=== PATIENT | female | born 1955 | race Caucasian/White ===

== ENCOUNTER → 2022-12-06 | Outpatient (CLI) | payer MEDICARE ==
--- NOTE | 2022-12-06 11:54 | US ---
EXAMINATION TYPE: US abdomen limited DATE OF EXAM: 12/06/2022 COMPARISON: NONE CLINICAL HISTORY: B15.9 HEP A R94.5 ABNORMAL LABS. Hep A limited due to body habitus and bowel gas. TECHNIQUE: Multiple sonographic images of the right upper quadrant are obtained. FINDINGS: EXAM MEASUREMENTS: Liver Length: 15.1 cm Gallbladder Wall: .3 cm CBD: 0.6 cm Right Kidney: 9.2 x 3.3 x 3.5 cm SEAT BUILDER NOTES: Pancreas: Obscured by bowel gas Liver: Increased attenuation which is slightly heterogenous. No suspicious masses. Gallbladder: No stones seen, increased density layering in the gallbladder lumen. Evidence for sonographic Virgen's sign: No CBD: wnl Right Kidney: No hydronephrosis or masses seen IMPRESSION: 1. No evidence for acute process. 2. Biliary sludge 3. Heterogenous liver likely secondary to hepatocellular disease.
== END | disposition home or self-care (01) ==
LOC: RADUSWWP 07:46
PROVIDERS: ATTEND Family Medicine
DX: K83.8 Other specified diseases of biliary tract (principal); B15.9 Hepatitis A without hepatic coma; R94.5 Abnormal results of liver function studies
CPT/HCPCS: 76705

== ENCOUNTER → 2023-06-15 | Outpatient (CLI) | payer MEDICARE ==
--- NOTE | 2023-06-15 13:25 | US ---
EXAMINATION TYPE: US venous doppler duplex LE DATE OF EXAM: 06/15/2023 1:13 PM COMPARISON: NONE CLINICAL INDICATION: Female, 67 years old with history of M79.661, M79.662; Edema SIDE PERFORMED: Bilateral TECHNIQUE: The lower extremity deep venous system is examined utilizing real time linear array sonog carlie with graded compression, doppler sonography and color-flow sonography. VESSELS IMAGED: Common Femoral Vein Deep Femoral Vein Greater Saphenous Vein * Femoral Vein Popliteal Vein Small Saphenous Vein * Proximal Calf Veins (* superficial vessels) Right Leg: Negative for DVT Left Leg: Negative for DVT IMPRESSION: Grayscale, color doppler, spectral doppler imaging performed of the deep veins of the lo wer extremities. There is normal flow, compressibility, vascular waveforms.
== END | disposition home or self-care (01) ==
LOC: RADUSWWP 12:55
PROVIDERS: ATTEND Family Medicine
DX: M79.661 Pain in right lower leg (principal); M79.662 Pain in left lower leg; M79.671 Pain in right foot; R60.0 Localized edema
CPT/HCPCS: 93970

== ENCOUNTER → 2025-01-23 | Outpatient (CLI) | payer MEDICARE ==
--- NOTE | 2025-01-23 16:12 | MM ---
Reason for Exam: Screening (asymptomatic). Last mammogram was performed 2 year(s) and 1 month(s) ago. Patient History: Menarche at age 12. First Full-Term at age 20. Postmenopausal. Risk Values: Lacey 5 year model risk: 1.4%. NCI Lifetime model risk: 4.4%. Prior Study Comparison: 11/03/2019 Bilateral MG screening mammo w CAD - 2, [facility] 02/17/2021 Bilateral MG screening mammo w CAD - 2, [facility] 01/04/2023 Bilateral MG 3D screening mammo w/cad, [facility]. Tissue Density: The breasts are heterogeneously dense, which may obscure small masses. Findings: Analyzed By CAD. Low axillary tail lymph nodes are unchanged. A couple of benign gliosis calcifications on either side are also unchanged. There is no suspicious group of microcalcifications or new suspicious mass in either breast. Overall Assessment: Benign, BI-RAD 2 Management: Screening Mammogram of both breasts in 1 year. Patient should continue monthly self-breast exams. A clinical breast exam by your physician is recommended on an annual basis. This exam should not preclude additional follow-up of suspicious palpable abnormalities. Note on Lacey scores and lifetime risk: 1. A Lacey score greater than 3% is considered moderate risk. If this is the case, consider specialist referral to assess eligibility for a risk reducing agent. 2. If overall lifetime risk for the development of breast cancer is 20% or higher, the patient may qualify for future screening with alternating mammogram and breast MRI. [facility], , 01/23/2025 4:09 PM. Electronically signed and approved by: Armin Bynum M.D. Radiologist
== END | disposition home or self-care (01) ==
LOC: RADMAMWWP 13:40
PROVIDERS: ATTEND Family Medicine
DX: Z12.31 Encounter for screening mammogram for malignant neoplasm of breast (principal); R92.333 Mammographic heterogeneous density, bilateral breasts; Z78.0 Asymptomatic menopausal state
CPT/HCPCS: 77063; 77067

== ENCOUNTER 2025-03-17 10:33 | Day surgery (SDC) | payer MEDICARE ==
[2025-03-13 10:06] VITALS: BMI 32.8
[2025-03-17] MEDS: IV FLUID CONTINUATION 1,000 ML IV ONE (10:59)
[2025-03-17] MEDS ORDERED: LIDOCAINE 1% (10MG/ML) FOR IV START INTRADERMA PRN (11:02)
[2025-03-17 11:04] VITALS: RESP 16; TEMP 97.8
[2025-03-17] MEDS: LACTATED RINGERS 1,000 ML IV SCH (11:12)
[2025-03-17 11:16] LABS: Glucose,Whole Blood 94 mg/dL (70-110)
[2025-03-17] MEDS ORDERED: PROPOFOL 10 MG/ML 20 ML VIAL IV ONE (12:04)
--- NOTE | 2025-03-17 12:19 | P.PCN ---
Date of Procedure: 03/17/25 Procedure(s) Performed: BRIEF HISTORY: Patient is a 69-year-old pleasant white female scheduled for an elective colonoscopy as a part of screening for history of colon polyps. Her last colonoscopy was in 5 years ago in [place]. PROCEDURE PERFORMED: Colonoscopy with biopsy. PREOPERATIVE DIAGNOSIS: Screening for history of colon polyps. IV sedation per Anesthesia. PROCEDURE: After informed consent was obtained, the patient, was brought into the endoscopy unit. IV sedation was administered by Anesthesia under continuous monitoring. Digital rectal examination was normal. Initially the Olympus CF-160 flexible video colonoscope was then inserted in the rectum, gradually advanced into the cecum without any difficulty. Careful examination was performed as the scope was gradually being withdrawn. Ileocecal valve and the appendiceal orifice were visualized and appeared normal. Prep was excellent. Mucosa of the cecum, ascending colon, transverse colon, descending colon, sigmoid colon, appeared normal. In the mid rectum extending from 5 to 10 cm from the anal verge there was mucus erythema and friability noted and biopsies were done from this area. The distal rectum appeared normal. Retroflexion was performed in the rectum and no lesions were seen. The patient tolerated the procedure well. IMPRESSION: Proctitis involving the mid rectum extending from 5 to 10 cm from the anal verge with mucosal erythema and friability s/p biopsy Distal rectum appeared normal Rest of the colon appeared normal RECOMMENDATIONS: Findings of this examination were discussed with the patient as well as her family. She was advised to follow-up with the biopsy results. She will be seen in the office in 2 to 3 weeks.. Recommended repeat colonoscopy in 10 years.
[2025-03-17 12:41] VITALS: BP 127/78; PULSE 76
== END 2025-03-17 13:13 | disposition home or self-care (01) ==
LOC: ORWHC2ENDO 10:33
PROVIDERS: ATTEND Internal Medicine Gastroenterology
DX: Z12.11 Encounter for screening for malignant neoplasm of colon (principal); K62.89 Other specified diseases of anus and rectum; I10 Essential (primary) hypertension; E78.5 Hyperlipidemia, unspecified; E03.9 Hypothyroidism, unspecified; K21.9 Gastro-esophageal reflux disease without esophagitis; Z79.890 Hormone replacement therapy; Z79.899 Other long term (current) drug therapy; Z87.891 Personal history of nicotine dependence; Z86.0100 Personal history of colon polyps, unspecified
CPT/HCPCS: 45380; J2704; 88305